=== PATIENT | female | born 1940 | race Caucasian/White ===

== ENCOUNTER 2019-01-28 14:03 | Emergency (ER) | payer MEDICARE, OTHER ==
[2019-01-28] MEDS ORDERED: ONDANSETRON INJ 4 MG/2 ML VIAL IV ONE (14:12)
[2019-01-28] MEDS ORDERED: SODIUM CHLORIDE 0.9% 1000ML 1,000 ML IVS PRN (14:12)
[2019-01-28] MEDS ORDERED: SODIUM CHLORIDE 0.9% (FLUSH) 10 ML SYG IV PRN (14:12)
--- NOTE | 2019-01-28 14:26 | ED.PDOC ---
History of Present Illness - General Chief Complaint: Abdominal Pain Stated Complaint: Abdominal and back discomfort Time Seen by Provider: 01/28/19 14:05 - History of Present Illness Initial Comments: c/o having generalized abdominal pain and R sided lower rib pain since 1 week : getting worse gradually , associated with nausea , no vomiting or constipation or diarrhea , no fever or chills Abdominal Pain Onset Location: generalized abdomen Pain Radiation: no radiation Quality: moderate, intermittent Timing/Duration: 1 week Improving Factors: nothing Worsening Factors: nothing Associated Symptoms: back pain Review of Systems - Review of Systems Constitutional: States: no symptoms reported EENTM: States: no symptoms reported Respiratory: States: no symptoms reported Cardiology: States: no symptoms reported Gastrointestinal/Abdominal: States: see HPI Genitourinary: States: no symptoms reported Musculoskeletal: States: no symptoms reported Skin: States: no symptoms reported Neurological: States: no symptoms reported Endocrine: States: no symptoms reported Hematologic/Lymphatic: States: no symptoms reported Family Medical History - Family History Mother Family History: No Known Living Status: Physical Exam - Physical Exam General Appearance: Alert, Comfortable Eyes, Ears, Nose, Throat Exam: PERRL/EOMI, normal ENT inspection Neck: non-tender, full range of motion, supple, normal inspection Respiratory: chest non-tender, lungs clear, normal breath sounds, no respiratory distress, no accessory muscle use Cardiovascular/Chest: regular rate, rhythm, no edema, no gallop, no JVD, no murmur Gastrointestinal/Abdominal: soft, no organomegaly, no pulsatile mass, tenderness Back Exam: other - tenderness over the R lower ribs posteriorly Extremity: non-tender Neurologic: no motor/sensory deficits, alert, normal mood/affect, oriented x 3 Progress - EKG/XRAY/CT EKG: Gabe, Sinus Departure - Departure Clinical Impression: Abdominal pain, Rib pain Time of Disposition: 15:49 Disposition: Discharge to Home or Self Care Condition: Good Departure Forms: ED Discharge - Pt. Copy, Patient Portal Self Enrollment Instructions: DI for Abdominal Pain-Adult Diet: resume usual diet, regular diet Activity: increase activity as tolerated, walking as tolerated Prescriptions: RX: Diclofenac Sodium (Topical) [Diclofenac Sodium] 1 % TD QID 5 Days gel Dicyclomine HCl [Bentyl] 20 mg PO QID #20 tab Esomeprazole Magnesium [Nexium] 40 mg PO QDAC #10 cap Ondansetron Tab [Zofran Tab] 0 mg PO TID #10 tab Home Medications: Ambulatory Orders Dicyclomine HCl [Bentyl] 20 mg PO QID #20 tab 01/28/19 Esomeprazole Magnesium [Nexium] 40 mg PO QDAC #10 cap 01/28/19 Ondansetron Tab [Zofran Tab] 0 mg PO TID #10 tab 01/28/19 Paroxetine HCl [Paxil] 30 mg PO DAILY 01/28/19 RX: Diclofenac Sodium (Topical) [Diclofenac Sodium] 1 % TD QID 5 Days gel 01/28/19 Additional Instructions: Follow up PCP in 1-2 days Return to the [facility] if symptoms worsen or any other medical condition
--- NOTE | 2019-01-28 15:29 | RAD ---
EXAM DESCRIPTION: Chest,1 View CLINICAL HISTORY: 78 years Female, sob COMPARISON: None. TECHNIQUE: AP portable chest. FINDINGS: The lungs are mildly hyperinflated. Mild biapical pleural thickening/scarring. Mild left basilar subsegmental atelectasis. No focal consolidation, significant pneumothorax or pleural effusion seen. The heart is normal in size. The aortic knob is partially calcified. No acute osseous abnormality. IMPRESSION: No acute cardiopulmonary process. Electronically signed by: Weston Shannon DO 01/28/2019 3:28 PM [facility]
--- NOTE | 2019-01-28 15:32 | CT ---
EXAM DESCRIPTION: CT Abdomen and Pelvis With Contrast: CLINICAL HISTORY: abdominal pain. COMPARISON: None. TECHNIQUE: Contiguous axial sections are obtained through the abdomen and pelvis as per protocol after administration of iodinated contrast. Oral contrast was not administered. . Sagittal and coronal reformations were obtained. Automatic exposure control (AEC), mA and/or kV adjustment by patient size, and/or iterative reconstructive technique was used, per departmental dose optimization program, during the performance of the CT examination. FINDINGS: The manager house view demonstrates no abnormalities . The visualized lung bases demonstrates mild pectus deformity of the chest wall. The liver is normal in size and demonstrates normal attenuation and enhancement. [The spleen, pancreas, adrenal glands appear normal in size and attenuation without any focal abnormalities. The gallbladder is normal . Kidneys demonstrate no evidence of calculi. Kidneys are normal in size, shape, attenuation and enhancement. Cortical left renal cyst is noted. The aorta, IVC and retroperitoneal structures appear normal . The stomach demonstrates No abnormalities. . The small bowel loops appear unremarkable. The appendix is not visualized with certainty. No inflammatory changes are seen in the region of the base of the cecum, however. . The colon is unremarkable. No evidence of free intraperitoneal fluid or air is noted. CT examination of the pelvis demonstrates no evidence of mass or adenopathy. The urinary bladder appears normal. The [Reproductive organs are absent surgically. Inguinal regions are unremarkable. Levoscoliosis of the lumbar spine is noted. Facet arthropathy is seen in the lower lumbar spine. IMPRESSION: Normal CT examination of the abdomen and pelvis with contrast. Electronically signed by: Lovely Salazar MD 01/28/2019 3:31 PM [facility]
[2019-01-28] MEDS ORDERED: DICYCLOMINE HCL INJ 20 MG/2 ML AMP IM ONE (15:44)
[2019-01-28] MEDS ORDERED: FAMOTIDINE IV PREMIX 20 MG in PREMIX BAG 1 BAG IVPB ONE (15:45)
[2019-01-28] MEDS ORDERED: FAMOTIDINE IV PREMIX 50 ML IVPB ONE (16:02)
[2019-01-28 17:27] VITALS: BP 193/83; TEMP 97.6; O2SAT 97
== END 2019-01-28 17:19 | disposition home or self-care (01) ==
LOC: ER 14:03
DX: R10.84 Generalized abdominal pain (principal); R07.81 Pleurodynia; R00.1 Bradycardia, unspecified; R11.0 Nausea
CPT/HCPCS: 36415; 71045; 74177; 80048; 80076; 81001; 83690; 85025; 93005; J0500; J2405; J3490; J7030